=== PATIENT | male | born 1980 | race Hispanic/Latino ===

== ENCOUNTER 2024-06-21 10:24 | Emergency (ER) | payer OTHER ==
[~2024-06-21] VITALS: Ht 177.8 cm; Wt 75.6 kg
[2024-06-21 16:10] LABS: ANION GAP 10.1 (7-21); BUN/CREATININE RATIO 9.87 (6.0-28.6); CALCIUM 8.9 mg/dL (8.5-10.1); CREATININE, SERUM 0.81 mg/dL (0.70-1.30); POTASSIUM 4.1 mmol/L (3.5-5.1)
[2024-06-21 18:18] VITALS: BP 119/83
--- NOTE | 2024-06-22 13:08 | NUR ---
Placed on PCP list for [facility] and dye house hand notified. Clinicals and facesheet sent to dye house hand.
== END 2024-06-21 18:10 | disposition home or self-care (01) ==
LOC: ED 10:24
PROVIDERS: Emergency Medicine
DX: N28.89 Other specified disorders of kidney and ureter (principal); E11.9 Type 2 diabetes mellitus without complications
CPT/HCPCS: 36415; 71260; 74177; 80048; 99284-25; Q9967